=== PATIENT | female | born 1980 | race Caucasian/White ===

== ENCOUNTER 2017-07-27 19:30 | Emergency (ER) | payer SELFPAY ==
[2017-07-27 20:05] VITALS: BP 148/94; BMI 45.0
[2017-07-27] MEDS ORDERED: ROCEPHIN VIAL 1 GM IM ONE (20:51)
[2017-07-27] MEDS ORDERED: TORADOL 60 MG VIAL IM ONE (20:52)
--- NOTE | 2017-07-27 21:00 | DR.GENAD ---
HPI - PCP Primary Care Physician: NFD - Complaint/Symptoms Chief Complaint Doctors Comments: Patient is complaining of right jaw and mouth pain for the past three days getting worst today. States it hurts when she eats and she has been having problems swallowing her food. She went to her drug store yesterday and he gave her some Cleocin 150mg tablets she has been taking three times daily but it has not helped. States she is having problems opening her mouth on the right side and she has not been able to eat because she cannot oper her mouth. She denies fever, chills or any recent trauma. States she does not have a local doctor or a dentist. Chief Complaint:: THINKS BOTTOM TOOTH IN BACK ON RIGHT SIDE IS INFECTED. HAS PAIN IN RIGHT JAW, EAR , TEMPORAL AREA, THROAT.HAS TO EAT THROUGH A STRAW BECAUSE SHE CANNOT OPEN HER MOUTH WIDE ENOUGH TO EAT. Self Treatment fo Chief Complaint: AMOXICILLIN ON AND . ONLY TOOK TWO TABS. DRUG STORE PRESCRIBED HER CLINDAMYCIN STARTED TAKING THEM YESTERDAY. PATIENT HAS BEEN HAVING TROUBLE SWALLOWING PILLS. LAST ONE TAKEN TODAY AT 1730. PAITENT BEEN TAKING GOODY POWDER FOR PAIN. LAST TAKEN AT 1530. PT ALSO TRIED HEATING PAD FOR PAIN - Nurses notes reviewed Nurses Notes Review: Yes - Source History Provided: Patient - Mode of Arrival Mode of Arrival: Ambulatory - Timing Onset of Chief Complaint: 07/24/17 Came on: Gradually - Duration Duration: Constant How lon Duration: Days - Location Location: right jaw - Severity Severity: Moderate, Severe - Modifying Factors Worsens:: eating or opening her mouth Improves:: nothing PMH - PMH Past Medical History: Yes Past Medical History: Hyperthyroidism Past Surgical History: Yes Surgical History: Appendectomy - Family History History of Family Medical Conditions: Yes Family Medical History: Diabetes Mellitus, Cancer, PR, Coronary Artery Disease, Heart Failure, Sudden Cardiac , Hypertension - Social History Does patient currently use any type of tobacco product: No Have you used tobacco products in the last 12 months: No Type of Tobacco Use: None Alcohol Use: None Do you use any recreational Drugs:: No Lives With: Spouse Lives Where: Home - infectious screening In the last 2 months have you had wt loss of >10#?: NO Have you had fever, night sweats or hemotysis?: No Have you traveled outside the country in the last 6 months?: No Isolation: Standard ROS - Review of Systems Constitutional: No Symptoms Reported. negative: See HPI, Chills, Diaphoresis, Fever, Malaise, Weakness, Irritable, Fatigue, Loss of Appetite, Other Eyes: No Symptoms Reported ENTM: No Symptoms Reported, Ear Pain, Nose Congestion, Mouth Pain, Throat Pain. negative: See HPI, Ear Discharge, Pulling on Ears, Hearing Loss, Nose Pain, Nose Discharge, Epistaxis, Mouth Swelling, Loose Teeth, Drooling, Throat Swelling, Ear Foreign Body Respiratoy: No Symptoms Reported Cardiovascular: No Symptoms Reported Gastrointestinal/Abdominal: No Symptoms Reported. negative: See HPI, Abdominal Pain, Constipation, Diarrhea, Nausea, Vomiting, Food Intolerance, Other Genitourinary: No Symptoms Reported Neurological: No Symptoms Reported Musculoskeletal: No Symptoms Reported Integumentary: No Symptoms Reported. negative: See HPI, Change in Color, Change in Hair/Nails, Dryness, Lesions, Lumps, Rash, Itching, Wound, Bruises, Juandice, Other Hematologic/Lymphatic: No Symptoms Reported Endocrine: No Symptoms Reported Psychiatric: No Symptoms Reported PE - Vital Signs Vitals: Temperature 98.5 F Pulse Rate 80 Respiratory Rate 20 Blood Pressure 148/94 O2 Sat by Pulse Oximetry 99 - General Limitations: No Limitations General Appearance: Alert, In Distress (moderate), Obese - Head Head Exam: Normal Inspection, Atraumatic, Normocephalic - Eyes Eye exam: Normal Appearance, PERRL, EOMI. negative: Scleral Icterus, Conjunctival Injection, Nystagmus, Miosis, Mydrasis, Periorbital Swelling, Periorbital Tenderness, Other - ENT ENT Exam: Normal Exam, Normal Oropharynx, Normal External Ear Exam, Mucous Membranes Moist, TM's Normal Bilaterally (dental caries; gum with edema and white exudated) External Ear Exam: Normal External Inspection, External Tenderness (right TMJ tender) TM/Canal Exam: Bilateral Normal Nose Exam: Normal Nose Exam Mouth Exam: Normal Inspection. negative: Drooling (right mandible tender on palpation), Trismus, Lip Swelling, Tongue Elevation, Tongue Swelling, Laceration , Other Throat Exam: Normal Inspection, Tonsillar Erythema - Neck Neck Exam: Normal Inspection, Full ROM, Trachea Midline, Tenderness (right lateral neck). negative: Meningismus, Lymphadenopathy, Thyromegaly, Other - Chest Chest Inspection: Normal Inspection, Symmetric Chest Wall Rise. negative: Tenderness, Rash, Abscess, Other - Respiratory Respiratory Exam: Normal Lung Sounds Bilat Respiratory Exam: Bilateral Clear to Auscultation - Cardiovascular Cardiovascular Exam: Regular Rate, Normal Rhythm. negative: Bradycardia, Tachycardia, Irregular Rhythm, Normal Heart Sounds, Systolic Murmur, Diastolic Murmur, Rubs, Gallop, Clicks, JVD, +S1, +S2, +S3, +S4, Other - Abdominal Exam Abdominal Exam: Normal Inspection, Normal Bowel Sounds, Soft Abdominal Tenderness: negative: RUQ, RLQ, LUQ, LLQ, Epigastrium, Suprapubic, Diffuse, Mild, Moderate, Severe, Other - Extremities Extremities Exam: Normal Inspection, Full ROM, Normal Capillary Refill. negative: Tenderness, Edema, Joint Swelling, Calf Tenderness, Other - Back Back Exam: Normal Inspection, Full ROM. negative: Tenderness, (R) CVA Tenderness, (L) CVA Tenderness, Muscle Spasm, Paraspinal Tenderness, Vertebral Tenderness, Rashes, (R) Sciatic Notch Tenderness, (L) Sciatic Notch Tendern, (R ) Straight Leg Raise, (L) Straight Leg Raise, Other - Neurologic Neurological Exam: Alert, Oriented X3, CN II-XII Intact, Normal Gait, Reflexes Normal - Psychiatric Psychiatric Exam: Normal Affect, Normal Mood - Skin Skin Exam: Warm, Dry, Intact, Normal Color - Diagnosis Discharge Problem: TMJ (temporomandibular joint disorder), Dental caries, Pyorrhea - Discharge Plan Disposition: [address] [place] [address], SELF-CARE Condition: Stable Prescriptions: Ibuprofen [MOTRIN TAB 800 MG *] 800 mg PO BID PRN #60 tab PRN Reason: Pain/Inflammation Penicillin V Potassium 500 mg PO QID PRN #40 tablet PRN Reason: - Follow ups/Referrals Follow ups/Referrals: NFD,None [Primary Care Provider] - 3 days SHREYA BOBO [STAFF PHYSICIAN] - 3 days - Instructions Instructions: Dental Caries, Jaw Range of Motion Exercises, Jaw Dislocation, [id number]
[2017-07-27] MEDS ORDERED: XYLOCAINE 1 % (PLAIN) ONE (21:16)
[2017-07-27] MEDS ORDERED: ROCEPHIN VIAL 1 GM ONE (21:16)
[2017-07-27] MEDS ORDERED: TORADOL 60 MG VIAL ONE (21:16)
== END 2017-07-27 22:33 | disposition home or self-care (01) ==
LOC: ER 19:30
DX: M26.601 Right temporomandibular joint disorder, unspecified (principal); K02.9 Dental caries, unspecified; K05.30 Chronic periodontitis, unspecified
CPT/HCPCS: 96372; 99282; J0696; J1885; J2001